=== PATIENT | female | born 1990 | race Two or more races ===

== ENCOUNTER 2018-03-06 10:56 | Emergency (ER) | payer OTHER ==
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
[2018-03-06] MEDS ORDERED: LORazepam 1 MG TAB PO ONE (11:50)
[2018-03-06 12:53] VITALS: BP 122/69
== END 2018-03-06 12:51 | disposition home or self-care (01) ==
DX: T75.4XXA Electrocution, initial encounter (principal); W86.8XXA Exposure to other electric current, initial encounter; Y92.9 Unspecified place or not applicable; Y93.9 Activity, unspecified; Y99.0 Civilian activity done for income or pay